=== PATIENT | female | born 1945 | race Caucasian/White ===

== ENCOUNTER 2023-02-24 07:07 | Observation (INO) ==
--- NOTE | 2023-01-16 10:38 | PAT Medication Instructions ---
Medication Instructions Date of Service January 16, 2023 Home Medications aspirin 81 mg tablet 81 mg PO HS betamethasone valerate 0.1 % topical ointment 1 applic topical BID PRN calcium carb-ergocalciferol (vit D2) 600 mg calcium-200 unit tablet 1 tab PO BID cholecalciferol (vitamin D3) 50 mcg (2,000 unit) tablet (Vitamin D3) 50 mcg PO BID coenzyme Q10 200 mg capsule (Co Q-10) 200 mg PO QAM cyanocobalamin (vitamin B-12) 250 mcg tablet (Vitamin B-12) 250 mcg PO QAM PRN glucosamine 750 [id number] no1 644 mg-C 30 mg-edyta 1 mg tablet (Osteo Bi-Flex Triple Strength) 1 tab PO QAM magnesium 250 mg tablet 250 mg PO HS melatonin 10 mg tablet 10 mg PO HS multivitamin 1 tab PO QAM rosuvastatin 10 mg tablet 10 mg PO HS valsartan 80 mg-hydrochlorothiazide 12.5 mg tablet 1 tab PO QAM zinc 50 mg tablet 50 mg PO QAM ASK your prescriber and surgeon aspirin 81 mg tablet 81 mg PO HS STOP taking 2 weeks before surgery (or as soon as possible if surgery is within 2 weeks) coenzyme Q10 200 mg capsule (Co Q-10) 200 mg PO QAM glucosamine 750 [id number]-[id number] no1 644 mg-C 30 mg-edyta 1 mg tablet (Osteo Bi-Flex Triple Strength) 1 tab PO QAM STOP taking 24 hours before surgery betamethasone valerate 0.1 % topical ointment 1 applic topical BID PRN DO NOT take the morning of surgery calcium carb-ergocalciferol (vit D2) 600 mg calcium-200 unit tablet 1 tab PO BID cholecalciferol (vitamin D3) 50 mcg (2,000 unit) tablet (Vitamin D3) 50 mcg PO BID cyanocobalamin (vitamin B-12) 250 mcg tablet (Vitamin B-12) 250 mcg PO QAM PRN multivitamin 1 tab PO QAM valsartan 80 mg-hydrochlorothiazide 12.5 mg tablet 1 tab PO QAM zinc 50 mg tablet 50 mg PO QAM Take evening before surgery calcium carb-ergocalciferol (vit D2) 600 mg calcium-200 unit tablet 1 tab PO BID cholecalciferol (vitamin D3) 50 mcg (2,000 unit) tablet (Vitamin D3) 50 mcg PO BID magnesium 250 mg tablet 250 mg PO HS melatonin 10 mg tablet 10 mg PO HS rosuvastatin 10 mg tablet 10 mg PO HS Other Notes NOTHING TO EAT OR DRINK AFTER MIDNIGHT. If you have any questions please call us at [phone] or [phone] or [phone] or [phone]
--- NOTE | 2023-01-19 13:04 | Anesthesiology Consultation ---
Date of Service January 19, 2023 Assessment & Plan (1) Encounter for pre-operative examination: Chart Review Chart Review: Acceptable Risk for Surgery and Patient seen in Pre Admission Testing - Due to age- patient is NOT an OPJ candidate (currently 23 hour obs) Per PAT appt on 01/19/23, no recent illness/disease exposures, illness related symptoms, or recent illness/disease positive tests. Will leave to surgeon's discretion if preop Covid testing needed Teaching & Discussion Pre-Anesthesia Teaching/Discussion Notes: Instructed NPO after midnight before surgery,except medications with 15 cc of water. Medication instructions provided according to the [facility] guidelines. History Surgery Operation Date: 02/24/23 10:00 Proposed Procedures p Left Reverse Total Shoulder Arthroplasty - Evan Floyd DO Height/Weight Height: 5 ft Weight: 78.8 kg Allergies Allergy/AdvReac Type Severity Reaction Status Date / Time Penicillins Allergy Unknown Unknown Verified 01/12/23 10:45 Medications Home Medications Medication Instructions Recorded Confirmed Last Taken aspirin 81 mg tablet 81 mg PO HS 01/12/23 01/12/23 Unknown betamethasone valerate 0.1 % 1 applic topical BID PRN Skin 01/12/23 01/12/23 Unknown topical ointment Irritation calcium carb-ergocalciferol (vit 1 tab PO BID 01/12/23 01/12/23 Unknown D2) 600 mg calcium-200 unit tablet cholecalciferol (vitamin D3) 50 50 mcg PO BID 01/12/23 01/12/23 Unknown mcg (2,000 unit) tablet (Vitamin D3) coenzyme Q10 200 mg capsule (Co 200 mg PO QAM 01/12/23 01/12/23 Unknown Q-10) cyanocobalamin (vitamin B-12) 250 250 mcg PO QAM PRN Fatigue 01/12/23 01/12/23 Unknown mcg tablet (Vitamin B-12) glucosamine 750 [id number]-hwignjfjkth-wqh 1 tab PO QAM 01/12/23 01/12/23 Unknown no1 644 mg-C 30 mg-edyta 1 mg tablet (Osteo Bi-Flex Triple Strength) magnesium 250 mg tablet 250 mg PO HS 01/12/23 01/12/23 Unknown melatonin 10 mg tablet 10 mg PO HS 01/12/23 01/12/23 Unknown multivitamin 1 tab PO QAM 01/12/23 01/12/23 Unknown rosuvastatin 10 mg tablet 10 mg PO HS 01/12/23 01/12/23 Unknown valsartan 80 1 tab PO QAM 01/12/23 01/12/23 Unknown mg-hydrochlorothiazide 12.5 mg tablet zinc 50 mg tablet 50 mg PO QAM 01/12/23 01/12/23 Unknown Past Medical History Medical History History of postoperative nausea and vomiting pt states that with colonoscopy she spoke to anesthesia provider and was 'given something' and had no issues with PONV Osteoarthritis GERD (gastroesophageal reflux disease) diet controlled Hyperlipidemia HTN (hypertension) Exercise / Class Metabolic Activity II 4-5 Yardwork/Stairs/Walk up hill (one flight of stairs - no chest pain or SOB ) Past Surgical History Surgical History History of esophagogastroduodenoscopy (EGD) Hx of colonoscopy Hx of tonsillectomy S/P hernia surgery umbilical; ~2020 H/O dilation and curettage Past Anesthesia History No Hx of Anesthesia Complications (with exception PONV ) and No Family Hx of Anesthesia Complications History of PONV History of PONV ( improved with pre and manjeet operative anti nausea medication ) and Hx of Motion Sickness (minimal ) Social History Smoking Status: Never smoker Do You Dip or Chew Tobacco: No Hx Alcohol Use: Yes Alcohol type: beer alcohol intake frequency: a few times a month Hx Substance Use: No Review of Systems - Hx of snoring - no hx of sleep study Patient denies chest pain, shortness of breath, dyspnea on exertion, cough, wheezing, palpitations. No hx of seizures, stroke, NC. No hx of blood clots or blood transfusions Physical Exam Vital Signs VITALS BP 121/80 P 89 TEMP 98.0 SP02 97% RESP 16 Constitutional no acute distress ENMT Mouth: no TMJ clicking Thyromental Distance: > or= 3.5 Finger Breadths (3.5) Mallampati Class: III ((smaller airway)) Caps to side teeth Neck neck extension not limited Respiratory normal respiratory effort; no respiratory distress Auscultation: lungs clear to auscultation bilaterally; no wheezes Cardiovascular Rate/Rhythm: regular rate and regular rhythm Heart Sounds: no murmur Vessels: no carotid bruit Musculoskeletal Spine: no pain with cervical ROM Extremities: extremities normal to inspection Psychiatric Orientation: alert Lab Results Anesthesia Preop Results Results Anesthesia Widget: WBC 10.14 K/ul (4.8-10.8) 01/19/23 Hgb 13.2 g/dl (12.0-16.0) 01/19/23 Hct 39.9 % (37.0-47.0) 01/19/23 Plt 432 K/uL (130-400) H 01/19/23 Na 134 mmol/L (136-145) L 01/19/23 K 3.5 mmol/L (3.5-5.1) 01/19/23 Cl 99 mmol/L (98-107) 01/19/23 CO2 29 mmol/L (21-32) 01/19/23 BUN 19 mg/dl (6-23) 01/19/23 Creat 0.62 mg/dl (0.6-1.2) 01/19/23 Glucose Level 109 mg/dl (70-99(Fasting)) H 01/19/23 PT 10.3 Seconds (9.0-12.0) 01/19/23 PTT 27 Seconds (21-31) 01/19/23 INR 0.9 (0.9-1.1) 01/19/23 Blood Type O Positive 01/19/23 Antibody Screen NEGATIVE 01/19/23 Testing Electrocardiogram Date: 01/19/23 Findings: + NSR @ (73bpm) Incomplete RBBB Chest X-Ray Date: 01/19/23 Findings: + NAD FINDINGS: PA and lateral chest radiographs are obtained. No prior studies are available for comparison at the time of dictation. The cardiomediastinal silhouette is top normal for projection. There is bibasilar scarring/atelectasis. The lungs and pleural spaces are otherwise clear. There is no pneumothorax. The skeletal structures are osteopenic. The bony thorax appears intact. Degenerative change and scoliosis is noted in the spine. Degenerative change is seen in the shoulders.
--- NOTE | 2023-02-23 07:43 | History & Physical Report ---
Date of Service February 23, 2023 Assessment & Plan (1) Rotator cuff arthropathy of left shoulder: We will proceed with a left reverse shoulder arthroplasty. Postoperatively she will be kept overnight in the hospital for postop medical management. She plans to go to outpatient physical therapy in [facility] upon discharge. History of Present Illness Chief Complaint: Cuff tear arthropathy of the left shoulder. Primary Care Provider: NARINDER Cooley Shruthi is a pleasant 77-year-old female who likes to remain active. She still plays golf and lives alone. She does a lot of her own housework and yardwork. She has been dealing with chronic increasing left shoulder pain. She has weakness in the shoulder. She saw another provider and had an MRI of the shoulder, which shows cuff tear arthropathy. After failing conservative treatment, she has elected proceed with a left reverse shoulder arthroplasty. Allergies Allergy/AdvReac Type Severity Reaction Status Date / Time Penicillins Allergy Unknown Unknown Verified 01/12/23 10:45 Home Medications Medication Instructions Recorded Confirmed Type aspirin 81 mg tablet 81 mg PO HS 01/12/23 01/12/23 History betamethasone valerate 0.1 % 1 applic topical BID PRN Skin 01/12/23 01/12/23 History topical ointment Irritation calcium carb-ergocalciferol (vit 1 tab PO BID 01/12/23 01/12/23 History D2) 600 mg calcium-200 unit tablet cholecalciferol (vitamin D3) 50 50 mcg PO BID 01/12/23 01/12/23 History mcg (2,000 unit) tablet (Vitamin D3) coenzyme Q10 200 mg capsule (Co 200 mg PO QAM 01/12/23 01/12/23 History Q-10) cyanocobalamin (vitamin B-12) 250 250 mcg PO QAM PRN Fatigue 01/12/23 01/12/23 History mcg tablet (Vitamin B-12) glucosamine 750 rw-qqzocyvaevy-hva 1 tab PO QAM 01/12/23 01/12/23 History no1 644 mg-C 30 mg-edyta 1 mg tablet (Osteo Bi-Flex Triple Strength) magnesium 250 mg tablet 250 mg PO HS 01/12/23 01/12/23 History melatonin 10 mg tablet 10 mg PO HS 01/12/23 01/12/23 History multivitamin 1 tab PO QAM 01/12/23 01/12/23 History rosuvastatin 10 mg tablet 10 mg PO HS 01/12/23 01/12/23 History valsartan 80 1 tab PO QAM 01/12/23 01/12/23 History mg-hydrochlorothiazide 12.5 mg tablet zinc 50 mg tablet 50 mg PO QAM 01/12/23 01/12/23 History Past Med/Surg History Medical History History of postoperative nausea and vomiting pt states that with colonoscopy she spoke to anesthesia provider and was 'given something' and had no issues with PONV Osteoarthritis GERD (gastroesophageal reflux disease) diet controlled Hyperlipidemia HTN (hypertension) Surgical History History of esophagogastroduodenoscopy (EGD) Hx of colonoscopy Hx of tonsillectomy S/P hernia surgery umbilical; ~2020 H/O dilation and curettage Social History Smoking Status: Never smoker Second Hand Exposure: No; Do You Dip or Chew Tobacco: No; Tobacco Cessation Education Requested by Patient: No Hx Alcohol Use: Yes Alcohol type: beer Hx Substance Use: No Preferred Language: Romanian Communication Ability: Effective Visitor Services Information Assistant Required: No Beliefs That Will Affect Care: None Current Living Situation: Alone Other Information That Helps Us Care for You: No Feels Safe at Home: Yes Safety Concerns: Feels Safe At This Time Assistive Devices: Glasses Review of Systems All systems reviewed & are unremarkable except as noted in HPI & below. Physical Exam On physical examination of left shoulder, she has 130 degrees forward elevation. She has 4-5 motion at the full can test and external rotation. Constitutional WD/WN, vitals as above Eyes PERRL, conjunctivae normal, anicteric sclerae ENMT external ear and nose normal, oropharynx normal Neck trachea midline, no thyromegaly Respiratory normal respiratory effort Cardiovascular RRR, no murmur, no edema Gastrointestinal (Abdomen) normal bowel sounds, soft, nontender, no hepatosplenomegaly Psychiatric A+Ox3, euthymic affect Results & Data Results & Data Laboratory Results . Diagnostic Findings X-rays of the left shoulder show signs of cuff tear arthropathy with superior migration of the humeral head on the glenoid and signs of glenohumeral arthritis. MRI of the left shoulder shows a chronic massive rotator cuff tear.. PG Care Time/CCT Total # of Minutes Spent Total Time Spent with Patient: Total time spent is greater than 50% in coordination of care (as documented) at patient's floor/unit and/or counseling patient: Coding Level of Care Code None Diagnoses Rotator cuff arthropathy of left shoulder M12.812
[~2023-02-24 07:07] MED LIST: ACETAMINOPHEN 500 MG TAB PO SCH; BUPIVACAINE 0.5 % 5 MG/1 ML PF 10ML VIAL ONE; FAMOTIDINE 20 MG TAB PO SCH; GABAPENTIN 300 MG CAP PO SCH; LR 15ML/HR IV SCH; LR 60ML/HR IV SCH; ROPIV 0.5% 246mg, Ketorolac 30mg, EPINEPHrine 0.5mg in NSS INFIL SCH; TRANEXAMIC ACID 1,000 MG **IV Intra-op IV SCH; TRANEXAMIC ACID 1,000 MG **IV Pre-op IV SCH; ceFAZolin 2000MG 2,000 MG/15 ML SYR IV SCH; dexAMETHasone**PF** 10 MG/ML VIAL IV SCH
[2023-02-24] MEDS ORDERED: MIDAZOLAM HCL 1 MG/ML 2ML VIAL ONE (07:29)
[2023-02-24] MEDS ORDERED: fentaNYL citrate PF 100 MCG/2 ML VIAL ONE (07:30)
--- NOTE | 2023-02-24 07:57 | History & Physical Bridge Note ---
Date of Service February 24, 2023 History & Physical Bridge Note I have examined the patient, reviewed the History & Physical and in the interval since the performance of the History & Physical I have noted the following changes of clinical significance: no changes noted
[2023-02-24] MEDS ORDERED: ATROPINE SULFATE 0.1 MG/ML 10ML SYR IV PRN (08:08)
[2023-02-24] MEDS ORDERED: ONDANSETRON INJ 2 MG/ML 2 ML VIAL IV PRN ×2 (08:08→11:39)
[2023-02-24] MEDS ORDERED: ePHEDrine sulfate 50 MG/ML AMP IV PRN (08:08)
[2023-02-24] MEDS ORDERED: fentaNYL citrate PF 100 MCG/2 ML VIAL IV PRN (08:08)
[2023-02-24] MEDS ORDERED: Nursing to Pharmacy Communication SCH (08:15)
[2023-02-24] MEDS ORDERED: DEXAMETHASONE SOD INJ 4 MG/ML VIAL ONE (08:22)
[2023-02-24] MEDS ORDERED: LIDOCAINE 2% 2 ML VIAL/AMP(20MG/ML) INFIL ONE (08:22)
[2023-02-24] MEDS ORDERED: ONDANSETRON INJ 2 MG/ML 2 ML VIAL ONE (08:22)
[2023-02-24] MEDS ORDERED: PROPOFOL IV EMULSION 10 MG/ML 20 ML VIAL IV ONE (08:22)
[2023-02-24] MEDS ORDERED: ORTHO JOINT ANESTHETIC ONE (09:02)
[2023-02-24] MEDS ORDERED: diphenhydrAMINE 50 MG/ML VIAL ONE (09:12)
--- NOTE | 2023-02-24 09:51 | Operative Report ---
PG Post Operative Report Pre & Post Diagnosis Operation Date: 02/24/23 08:55 Pre-Op Diagnosis: Cuff tear arthropathy of the left shoulder Post-Op Diagnosis: Cuff tear arthropathy left shoulder I identified the patient and participated in the time-out.: Yes Procedure Operation Date: 02/24/23 08:55 Actual Procedures p Left Reverse Total Shoulder Arthroplasty(Left) - Evan Floyd DO Surgeon Evan Floyd DO Concrete Pavement Installer Evan Menendez PA-C Estimated Blood Loss 100 Findings Consistent with Post-Op Diagnosis Specimens Left humeral head Description of Procedure Implants used: I used a [employer]omet Comprehensive reverse total shoulder arthroplasty system with a size 10 press fit micro humeral stem, a +6 offset humeral tray and a standard humeral bearing, a 25 mm small augment baseplate with a 6.5 mm central screw and superior and inferior locking screws, and a size 36 mm eccentric glenosphere. Danii arrived at [facility] for the above procedure. She was seen in the preoperative holding area and the operative extremity was identified and signed. She was given a preoperative antibiotic, TXA, and an interscalene nerve block. She was taken back to the operating room, laid on table in supine position, and put under general anesthesia. She was then put into the beachchair position. The shoulder was then prepped and draped in sterile fashion. A timeout was done and the patient and the operative extremity was properly identified. A deltopectoral approach was used. Dissection was taken down through the fascia and the deltoid was retracted laterally and the conjoined tendon was retracted medially. The anterior shoulder was exposed. The biceps tendon was chronically torn. The subscapularis was then directly released off the lesser tuberosity with a peel technique. The inferior capsule was released and the humeral head was dislocated. A canal finding reamer was sent down the center of the humeral canal. Sequential reaming up to a size 10 reamer was done. Off that reamer, a proximal humeral resection guide was placed. The proximal humerus was resected at 135 of inclination and 25 of retroversion. Osteophytes were then removed and the glenoid was exposed. Time was spent doing a complete capsular and labral release. The glenoid guide was then placed in the inferior aspect of the glenoid. A 3.2 mm Steinmann pin was then placed into the glenoid vault at 10 of inclination. The glenoid baseplate was then reamed. The final size 25 mm small augment baseplate was then impacted in the place. A 6.5 mm central screw was then placed followed by superior and inferior locking screws. A 36 mm eccentric glenosphere was then impacted into place. Surrounding soft tissues were then injected with 100 cc an orthopedic pain control cocktail. The proximal humerus was then exposed. Sequential broaching of the humerus up to a size 10 broach was done. Off that broach a +6 offset humeral tray was trialed. The shoulder was then reduced, brought through a full range of motion, and felt to be stable. The shoulder was then dislocated and the broach was removed. The final size 10 micro press-fit humeral stem was then impacted into place. A standard humeral bearing was then snapped onto a +6 offset humeral tray. The humeral tray was then impacted onto the humeral stem. The shoulder was once again reduced, brought through a full range of motion, and felt to be stable. The subscapularis was retracted and poor quality. It was unable to be repaired. A dilute betadyne lavage was then done for 3 minutes. The joint was then irrigated with normal saline solution. Hemostasis was obtained. The interval was closed with 2-0 Vicryl suture. The skin was then closed with 2-0 Vicryl and nataliia. A Silverlon dressing was placed and the arm was rested in a regular arm sling. She was then extubated and transferred to a hospital bed. She taken to the postanesthesia care unit in stable condition. She tolerated the procedure well. Evan Menendez PA-C, was present for the entire procedure. He was critical for patient positioning, prepping, draping, retraction exposure, wound closure and application of sterile dressing. I attest to the content of the Intraoperative Record and any orders documented therein. Any exceptions are noted below.
--- NOTE | 2023-02-24 10:53 | XRay Report ---
XR shoulder LT min 2V routine CLINICAL HISTORY: Post shoulder surgery COMPARISON STUDY: None. FINDINGS: Status post reverse left total shoulder arthroplasty. The hardware appears intact. Skin sta ples are in place. No fracture or dislocation within the left shoulder. IMPRESSION: Status post reverse left total shoulder arthroplasty. No evidence for hardware complicat ion. ACT 112: Negative or not required by law. Electronically signed by: Medardo Gagnon M.D. 02/24/2023 10:52 AM
[2023-02-24] MEDS ORDERED: oxyCODONE HCL IR 5 MG TAB (IMMEDIATE RELEASE) PO PRN (11:39)
[2023-02-24] MEDS ORDERED: MAGNESIUM HYDROXIDE SUSP 30 ML UDC PO PRN (11:39)
[2023-02-24] MEDS ORDERED: METOCLOPRAMIDE HCL INJ 5 MG/ML 2 ML VIAL IV PRN (11:39)
[2023-02-24] MEDS ORDERED: bisacodyL 10 MG SUPP PR PRN (11:39)
[2023-02-24] MEDS ORDERED: NALOXONE HCL 0.4 MG/1 ML VIAL/CARP IV PRN (11:39)
[2023-02-24] MEDS ORDERED: HYDROmorphone INJ 0.5 MG/0.5 ML SYR IV PRN (11:39)
[2023-02-24] MEDS ORDERED: BETAMETHASONE VAL 0.1% OINT 15 GM TUBE EXT PRN (11:54)
[2023-02-24] MEDS: ALLERGY Noted to ORDERED Medication SCH ×3 (12:19→12:24)
[2023-02-24] MEDS: SODIUM CHLORIDE 0.9% 1,000 ML IV SCH ×2 (13:13→23:09)
[2023-02-24] MEDS: KETOROLAC TROMETHAMINE 15 MG/ML VIAL IV SCH ×3 (13:15→23:02)
--- NOTE | 2023-02-24 13:26 | Anesthesiology Progress Note ---
Date of Service February 24, 2023 Anesthesia Post Procedure Vital Signs Vital Signs: Temp Pulse Pulse Resp BP Pulse Ox O2 Del Method 02/24/23 12:30 74 18 126/74 99 Room Air 02/24/23 12:00 78 18 132/76 100 Room Air 02/24/23 11:39 36.5 C 75 18 123/72 95 Room Air 02/24/23 11:10 75 14 127/71 96 Room Air 02/24/23 10:55 72 12 130/68 95 Room Air 02/24/23 10:45 75 13 123/71 97 Room Air 02/24/23 10:35 36.3 C L 75 16 134/65 99 Room Air 02/24/23 10:25 75 15 141/67 H 100 Room Air 02/24/23 10:15 78 17 130/70 100 Oxymask 02/24/23 10:06 36.2 C L 87 18 134/60 100 Oxymask 02/24/23 07:54 36.5 C 84 20 140/77 97 Room Air O2 Flow Rate 02/24/23 12:30 02/24/23 12:00 02/24/23 11:39 02/24/23 11:10 02/24/23 10:55 02/24/23 10:45 02/24/23 10:35 02/24/23 10:25 02/24/23 10:15 5 02/24/23 10:06 9 02/24/23 07:54 Pain Intensity Left Shoulder: Pain Intensity: 1 Transfer of Care Handoff Completed per policy Notes Mental Status: alert / awake / arousable and participated in evaluation Patient Amnestic to Procedure: Yes Nausea / Vomiting: adequately controlled Pain: adequately controlled Airway Patency, RR, SpO2: stable & adequate BP & HR: stable & adequate Hydration State: stable & adequate Anesthetic Complications: no major complications apparent and Pt Satisfied with anesthetic care
[2023-02-24] MEDS: ACETAMINOPHEN 500 MG TAB PO SCH ×2 (15:10→23:02)
[2023-02-24] MEDS: ceFAZolin 2000MG 2,000 MG/15 ML SYR IV SCH (17:33)
[2023-02-24] MEDS: DOCUSATE SODIUM 100 MG CAP PO SCH (19:54)
[2023-02-24] MEDS ORDERED: ROSUVASTATIN CALCIUM 10 MG TAB PO SCH (21:00)
[2023-02-24] MEDS ORDERED: ASPIRIN 81 MG ECTAB PO SCH (21:00)
[2023-02-24] MEDS ORDERED: SENNA 8.6 MG TAB PO SCH (21:00)
[2023-02-24] MEDS ORDERED: MELATONIN 3 MG TAB PO SCH (21:00)
[2023-02-25] MEDS: ceFAZolin 2000MG 2,000 MG/15 ML SYR IV SCH (02:48)
[2023-02-25] MEDS: KETOROLAC TROMETHAMINE 15 MG/ML VIAL IV SCH (06:16)
[2023-02-25] MEDS: ACETAMINOPHEN 500 MG TAB PO SCH (06:16)
--- NOTE | 2023-02-25 07:39 | Orthopedic Progress Note ---
Date of Service February 25, 2023 Assessment & Plan (1) Status post reverse total replacement of left shoulder: Overall she is doing very well. She is not having much pain in the left shoulder. She will be seen by physical therapy today for ambulation and range of motion exercises. She can be discharged home later today. She will follow- up with orthopedics in 2 weeks. Wilfrido Vargas was seen and examined at bedside this morning. Overall she is doing very well. She is not having much pain in the left shoulder. She was able to get some sleep last night. She is no complaints.. Review of Systems All systems reviewed & are unremarkable except as noted in HPI & below. Physical Exam On physical examination left shoulder, the dressing is clean and dry. She is wearing her sling as instructed. She has active motion of her hand and wrist.. Results & Data Results & Data Laboratory Results . Diagnostic Findings Postoperative x-rays of the left shoulder show the prosthesis to be in anatomic alignment without any evidence of fracture complication, or loosening.. PG Care Time/CCT Total # of Minutes Spent Total Time Spent with Patient: Total time spent is greater than 50% in coordination of care (as documented) at patient's floor/unit and/or counseling patient: Coding Level of Care Code 45808 Post Operative Follow-Up Diagnoses Status post reverse total replacement of left shoulder Z96.612
--- NOTE | 2023-02-25 07:40 | Discharge Summary ---
Date of Service February 25, 2023 Admission HPI (Per Admitting) Shruthi is a pleasant 77-year-old female who likes to remain active. She still plays golf and lives alone. She does a lot of her own housework and yardwork. She has been dealing with chronic increasing left shoulder pain. She has weakness in the shoulder. She saw another provider and had an MRI of the shoulder, which shows cuff tear arthropathy. After failing conservative treatment, she has elected proceed with a left reverse shoulder arthroplasty. Admission Exam (Per Admitting) On physical examination of left shoulder, she has 130 degrees forward elevation. She has 4-5 motion at the full can test and external rotation. Principal Diagnosis Same as "Discharge Diagnosis" noted below under Discharge Instructions. Discharge Exam On physical examination left shoulder, the dressing is clean and dry. She is wearing her sling as instructed. She has active motion of her hand and wrist.. Discharge Data Procedures Performed Operation Date: 02/24/23 08:55 Actual Procedures p Left Reverse Total Shoulder Arthroplasty(Left) - Evan Floyd DO Ordered Studies 02/24/23 05:00 US - OR guided needle placemen Routine Hospital Course (1) Status post reverse total replacement of left shoulder: On February 24, 2023 Danii arrived at [facility] and underwent a left reverse shoulder replacement without complication. She had a general anesthetic and a left interscalene nerve block. Postoperatively she was placed in a sling and transferred to the general orthopedic floors. Her hospital course was uneventful. On postop day #1, her vital signs were stable and her pain was well-controlled. She was able to participate well with physical t herapy doing ambulation and range of motion exercises. She was then discharged home. She will follow-up with orthopedics in 2 weeks. PG Care Time/CCT Total # of Minutes Spent Total Time Spent with Patient: Total time spent is greater than 50% in coordination of care (as documented) at patient's floor/unit and/or counseling patient: Discharge Plan Discharge Items Patient Disposition: Home - Self-Care Reason For Visit: Degenerative Joint Disease Left Shoulder Discharge Diagnosis: Left reverse shoulder replacement Activity: Per Instructions section Non-emergency contact: Surgeon Call non-emergency contact if: your wound has increased redness and your wound has increased drainage Follow-up/Referrals: Sid Lozano CRNP [Primary Care Provider] - Diet: Regular Addtl Attending Provider Instructions: Activity and Therapy Recommendations: * If you are using [facility] then therapy will be provided at your home until they feel you have accomplished all of your goals. * If you are using [facility] then Physical Therapy will be provided until they feel you are ready to start Outpatient Physical Therapy. * If you are not using home therapy then Outpatient Physical Therapy should start about 3-5 days from your day of surgery. Therapy will last about 8-12 weeks * Wear your sling for 3 weeks, unless otherwise instructed. You may remove your sling to shower and to dress, but otherwise, you should be in your sling at all times, including while sleeping * The shoulder replacement is very stable and you can use your hand while in the sling * You were shown a series of exercises in the hospital. Do these exercises daily including the exercises you were shown in physical therapy. Medications: * Narcotic You will likely be sent home from the hospital with a prescription for the narcotic pain medication that worked best throughout your stay. * Cefadroxil -take the antibiotic twice a day for 10 days to help prevent infection. * Other medications may be prescribed for specific circumstances. If you have any questions, please call the office at . * Resume previous home medications unless otherwise instructed Dressing Care: Leave the Silverlon dressing in place for 7 days. After 7 days you may remove the dressing. If the incision is not draining then you may leave the nataliia open to air. If there is a little bit of drainage or if the nataliia are getting stuck on your clothing then cover the incision with a dry dressing. The nataliia will be removed at your 2 week follow-up appointment. Showering: You may shower with the Silverlon dressing in place. Do not let the shower spray hit the dressing directly. Pat the Silverlon dressing dry. If the dressing becomes wet underneath, then simply remove the dressing. Keep the incision dry until you are 7 days out from the day of surgery. After 7 days you may remove the Silverlon dressing and shower with the nataliia exposed. Let soapy water run over the nataliia and pat them dry. Do not scrub or soak the incision. Things To Watch For: * Drainage from the incision site that occurs more than one week after your surgery. * Increased redness at the incision site. * Fever above 102 degrees Fahrenheit. * Unusual chest pain or shortness of breath. * Call [facility] at with any of the above problems Follow-Up Visit: Follow-up with Dr. Floyd's PA (Evan Menendez) 2-3 weeks after your day of surgery. He will remove your nataliia and answer any questions. If you have any additional questions or concerns, Dr Floyd is usually in the office at the same time and will be available An appointment was probably scheduled when you signed-up for surgery in the office. If you have any questions call More detailed instructions as well as Frequently Asked Questions were provided in a folder by our office when you signed-up for surgery. Please review these instructions when you get home. If you have any further questions or concerns, please feel free to call the office at [phone] Pending Studies at Discharge: No Stand-Alone Forms: My [facility], Smoking Cessation Medications and DC Order Prescriptions: New tramadol 50 mg tablet 50 mg PO Q6H PRN (Reason: pain) Qty: 30 0RF cefadroxil 500 mg capsule 500 mg PO BID 10 Days Qty: 20 0RF Continued valsartan-hydrochlorothiazide [Diovan HCT] 80-12.5 mg Tablet 1 tab PO QAM zinc 50 mg Tablet 50 mg PO QAM rosuvastatin 10 mg Tablet 10 mg PO HS coenzyme Q10 [Co Q-10] 200 mg Capsule 200 mg PO QAM multivitamin Tablet 1 tab PO QAM betamethasone valerate 0.1 % Ointment 1 applic TOPICAL BID PRN (Reason: Skin Irritation) cyanocobalamin (vitamin B-12) [Vitamin B-12] 250 mcg Tablet 250 mcg PO QAM PRN (Reason: Fatigue) magnesium 250 mg Tablet 250 mg PO HS aspirin 81 mg Tablet 81 mg PO HS Calcium + Vitamin D 600 mg calcium- 200 unit Tablet 1 tab PO BID cholecalciferol (vitamin D3) [Vitamin D3] 50 mcg (2,000 unit) Tablet 50 mcg PO BID melatonin 10 mg Tablet 10 mg PO HS Osteo Bi-Flex Triple Strength 750 mg-644 mg- 30 mg-1 mg Tablet 1 tab PO QAM Discharge Orders: Discharge Order (Routine); Ordered 02/25/23 Ordered By: Evan Floyd Admission Data Admit Date/Time: 02/24/23 10:05 Attending Provider: Evan Floyd Admit Provider: Evan Floyd Primary Care Provider: Sid Lozano
[2023-02-25] MEDS: DOCUSATE SODIUM 100 MG CAP PO SCH (08:00)
[2023-02-25] MEDS ORDERED: dexAMETHasone 4 MG TAB PO SCH (08:00)
[2023-02-25] MEDS ORDERED: VALSARTAN 80 MG TAB PO SCH (09:00)
[2023-02-25] MEDS ORDERED: VALSARTAN/HCTZ 80/12.5MG TAB PO SCH (09:00)
[2023-02-25] MEDS ORDERED: MULTIVITAMIN TAB PO SCH (09:00)
[2023-02-25] MEDS ORDERED: hydroCHLOROthiazide 25 MG TAB PO SCH (09:00)
== END 2023-02-25 10:58 | disposition home or self-care (01) ==
LOC: 3E 07:07 → ASU 07:07